=== PATIENT | female | born 1970 | race Caucasian/White ===

== ENCOUNTER → 2020-08-13 12:08 | Outpatient (CLI) | payer OTHER, SELFPAY ==
--- NOTE | 2020-08-13 | DI.US.S_ITS ---
PROCEDURE: US THYROID INDICATIONS: PAIN; LYMPHADENOPATHY TECHNIQUE: Real-time scanning was performed of the thyroid gland, with image documentation. COMPARISON: None. FINDINGS: There is no lymphadenopathy in the neck. The right thyroid lobe measures 1.7 x 1.7 x 4.2 cm. There is a hypoechoic right thyroid lobe nodule measuring 1.2 cm, wider than tall, without internal calcification. The left thyroid lobe measures 1.5 x 1.9 x 4.4 cm. There is a hypoechoic 1.7 cm wider than tall left thyroid lobe nodule without internal calcification. IMPRESSION: No lymphadenopathy or mass in the right neck. Bilateral thyroid nodules, for which follow-up is recommended in 6 months. Dictated by: Chidi Platt M.D. on 08/13/2020 at 13:34 Approved by: Chidi Platt M.D. on 08/13/2020 at 13:37
== END ==
PROVIDERS: Family Provider Physician Assistant Medical; PCP Family Medicine; Referring Provider Physician Assistant Medical; Visit Provider Physician Assistant Medical
DX: R59.0 Localized enlarged lymph nodes (principal); E04.2 Nontoxic multinodular goiter; M54.2 Cervicalgia
CPT/HCPCS: 76536

== ENCOUNTER 2021-12-31 12:03 | Emergency (ER) | payer OTHER, SELFPAY ==
[2021-12-31 12:08] VITALS: BP 164/104; PULSE 88; RESP 14; TEMP 36.5; O2SAT 97; BMI 28.0
[2021-12-31 13:25] LABS: Add Manual Diff / Slide Review NO; Basophils Absolute Auto 100 /uL (0-100); Basophils Percent Auto 0.7 % (0-2); Eosinophils Absolute Auto 100 /uL (0-450); Eosinophils Percent Auto 1.1 % (2-4); Hematocrit 40.6 % (36-46); Hemoglobin 13.8 g/dL (12.0-16.0); Lymphocytes Absolute Auto 2000 /uL (1100-4500); Lymphocytes Percent Auto 26.2 % (25-40); Mean Corpuscular HGB Conc 34.1 % (30-36); Mean Corpuscular Hemoglobin 32.1 PG (26-34); Monocytes Absolute Auto 700 /uL (0-900); Monocytes Percent Auto 8.9 % (3-14); Neutrophils Absolute Auto 4800 /uL (1500-7000); Neutrophils Percent Auto 63.1 % (50-75); Platelet Count 171 X10^3/uL (150-400); Red Blood Cell Count 4.31 X10^6/uL (4.0-5.2); Red Cell Distribution Width 13.7 % (11.6-14.8); White Blood Cell Count 7.6 X10^3/uL (4.5-11.0)
--- NOTE | 2021-12-31 13:37 | ED_ITS ---
HPI - Dental/Oral General Chief complaint: Dental/Oral Stated complaint: Left Sided Facial Swelling Time Seen by Provider: 12/31/21 12:42 Source: patient Mode of arrival: Ambulatory Limitations: no limitations History of Present Illness HPI Narrative: This is a 51-year-old female comes to the emergency department with complaint of left-sided facial swelling that started in the last day. She had a tooth that broke off. Patient states she started noticing swelling overnight and into this morning particularly under the left eye. She was seen by her primary care provider Dr. Jaquez who was concerned for orbital cellulitis and sent patient for evaluation. She does take chronic pain medication including methadone daily, she is on oxycodone, sertraline, duloxetine, gabapentin and frovatriptan. Patient has been afebrile. She has pain of the cheek but denies any pain of the eye itself. No pain with movement of the eye. No fevers or chills. No nausea or vomiting. She is uncomfortable. She denies any other symptoms at this time. She states she is allergic to diclofenac but can take ibuprofen. Related Data Home Medications Medication Instructions Recorded Confirmed omeprazole 20 mg capsule,delayed 20 mg PO QDAY #0 03/26/13 release fluoxetine 40 mg capsule (Prozac) 40 mg PO QDAY #0 05/10/13 Previous Rx's Medication Instructions Recorded amoxicillin 875 mg-potassium 1 tab PO Q12H #20 tab 12/31/21 clavulanate 125 mg tablet (Augmentin) Allergies Allergy/AdvReac Type Severity Reaction Status Date / Time codeine [CODEINE] Allergy Unknown Verified 12/31/21 12:13 diclofenac Allergy Unknown Verified 12/31/21 12:13 WHIP CREAM Allergy Unknown HIVES , Uncoded 02/06/18 12:56 DIFFICULTY SWALLOWING Review of Systems Review of Systems ROS Unobtainable: All systems reviewed & are unremarkable except as noted in HPI and below Patient History Surgical History History of third molar tooth extraction Status post tubal ligation (03/28/11) Social History Smoking Status: Current every day smoker Smoking Status: Current every day smoker alcohol intake frequency: holidays/special occasions only Substance Use Type: marijuana Exam Narrative Exam Narrative: GEN: well nourished, well appearing female, alert and oriented x 3, patient appears to be in mild distress. HEENT: Atraumatic, pupils are equal round reactive to light, extraocular movements are intact, patient has some swelling periorbitally and of the left lower eyelid, she has some mild periorbital swelling above but not of the upper eyelid. There is some mild erythema. No fluctuance. Patient is tender over the left maxillary sinus. Nares are clear, TMs are clear with no fluid, there is no conjunctival pallor. Throat is clear without any exudates, erythema, tonsillar enlargement or uvular deviation, LUNGS:Lungs clear to auscultation, no wheezes, rales, crackles, chest moves sym metrically ABD:bowel sounds normal, soft, non-tender, no guarding, rebound, rigidity, no masses noted, no hepatosplenomegaly MSCL: Full range of motion, normal gait NEURO:CN 2-12 intact, sensation normal SKIN: See above. Initial Vital Signs Initial Vital Signs: Vital Signs Temperature 97.7 F 12/31/21 12:08 Pulse Rate 88 12/31/21 12:08 Respiratory Rate 14 12/31/21 12:08 Blood Pressure 164/104 H 12/31/21 12:08 Pulse Oximetry 97 12/31/21 12:08 Course Orders Ordered: Discontinued Medications Ceftriaxone Sodium 2,000 mg/ (Sodium Chloride) 100 mls @ 200 mls/hr IV NOW ONE Stop: 12/31/21 12:43 Last Infusion: 12/31/21 15:29 Dose: 0 mls/hr Documented by: Admin: 12/31/21 13:46 Dose: 200 mls/hr Documented by: YVONNE Ketorolac Tromethamine (Ketorolac 30 Mg/Ml Vial) 15 mg IV NOW ONE Stop: 12/31/21 13:56 Last Admin: 12/31/21 14:11 Dose: 15 mg Documented by: YVONNE Vital Signs Vital signs: Vital Signs - 8 hr 12/31/21 12:08 12/31/21 14:43 Temperature 97.7 F Pulse Rate 88 68 Respiratory Rate 14 18 Blood Pressure 164/104 H 121/79 Pulse Oximetry 97 96 MDM - Dental/Oral Lab Data Result diagrams: 12/31/21 13:10 12/31/21 13:10 Labs: Lab Results 12/31/21 12/31/21 Range/Units 13:10 13:10 WBC 7.6 (4.5-11.0) X10^3/uL RBC 4.31 (4.0-5.2) X10^6/uL Hgb 13.8 (12.0-16.0) g/dL Hct 40.6 (36-46) % MCV 94.0 (80-100) fL MCH 32.1 (26-34) PG MCHC 34.1 (30-36) % RDW 13.7 (11.6-14.8) % Plt Count 171 (150-400) X10^3/uL Neut % (Auto) 63.1 (50-75) % Lymph % (Auto) 26.2 (25-40) % Iron % (Auto) 8.9 (3-14) % Eos % (Auto) 1.1 L (2-4) % Baso % (Auto) 0.7 (0-2) % Neut # (Auto) 4800 (7211-8764) /uL Lymph # (Auto) 2000 (5210-5102) /uL Iron # (Auto) 700 (0-900) /uL Eos # (Auto) 100 (0-450) /uL Baso # (Auto) 100 (0-100) /uL Sodium 137 (137-145) mmol/L Potassium 4.0 (3.4-5.1) mmol/L Chloride 105 (98-107) mmol/L Carbon Dioxide 28 (22-32) mmol/L BUN 6 L (7-17) mg/dL Creatinine 0.64 (0.52-1.04) mg/dL Estimated GFR > 60.0 (>60) mL/min BUN/Creatinine Ratio 9.4 (6-22) Glucose 88 (70-100) mg/dL Calcium 8.6 (8.4-10.2) mg/dL Imaging Data CT facial bones: Radiologist's Impression: [address] [address] [address] Scan Report Signed Patient: Bisi Riley MR#: [id number] : 1970 Acct:[id number] Age/Sex: 51 / F Date of Service: 12/31/21 Loc: ED Accession Number: [id number] ?? Procedure: CT facial bones w con Ordering Provider: Jana Schmitt D.O. PROCEDURE:? CT FACIAL BONES W CON ? INDICATIONS:? orbital cellulitis vs. left facial cellulitis ? TECHNIQUE:? After the administration of intravenous contrast, 2.5 mm axial sections acquired from the mid-neck to the frontal sinuses, with coronal and sagittal reformats.? For radiation dose reduction, the following was used:? automated exposure control, adjustment of mA and/or kV according to patient size.? ? COMPARISON:? None. ? FINDINGS:? Image quality:? Excellent.? ? Soft tissues:? There is left periorbital swelling and enhancement and enhancement and thickening of the superficial structures of the left cheek consistent with periorbital cellulitis.? No soft tissue gas.? No abscess.? Abnormality involving the globe or deep orbital structures.? No enlarged lymph nodes.? ? Vascular:? Visualized vascular structures appear patent throughout.? Bony vascular foramina and canals appear normal.? ? Bones:? Facial bones appear intact, without fractures, erosions, or destruction.? Visualized portions of the skull base and auditory canals also appear normal.? ? Sinuses:? Mucosal thickening of the left maxillary sinus measuring 7 mm in diffuse thickness.? Right maxillary sinus mucous retention cyst.? Other visualized paranasal sinuses and mastoids are clear. ? IMPRESSION:? ? 1. Left periorbital and left facial cellulitis. ? 2. Chronic left maxillary sinus disease.? ? ? Dictated by: Pepito Doshi M.D. on 12/31/2021 at 13:25 ? ? Approved by: Pepito Doshi M.D. on 12/31/2021 at 13:29? [facility] Narrative Medical decision making narrative: This is a 51-year-old female who comes in with complaint of swelling of the left side of her face sent from outside office for concern for orbital cellulitis. Has poor dentition and suspect this is the source of infection she has had swelling coming up a but is surrounding her eye. Patient does not have any pain with any IR with movement but does have periorbital swelling surrounding. CT orbits and facial bones was obtained which shows cellulitis but no clear abscess and no orbital cellulitis. Patient was started on antibiotics. Reviewed all the findings from today. Return precautions discussed. Patient comfortable with the plan. Discharge Plan Departure Patient Disposition: Home Clinical Impression: Cellulitis of face, Periorbital cellulitis of left eye Instructions: DI for Cellulitis -- Adult Activity Restrictions/Additional Instructions: Follow-up and recheck in the next 2-3 days if symptoms have not completely resolved. Take antibiotics until completely gone. Start oral antibiotics today. Prescription sent to [facility] in [place]. Please return for fevers, increasing swelling, redness, pain of the eye, pain with movement of the eye, lightheadedness or passing out, persistent vomiting, swelling of the mouth, tongue or oropharynx or other new or concerning symptoms. Prescriptions: New amoxicillin-pot clavulanate [Augmentin] 875-125 mg tablet 1 tab PO Q12H Qty: 20 0RF No Action omeprazole 20 MG capsule,delayed release(DR/EC) 20 mg PO QDAY Qty: 0 0RF fluoxetine [Prozac] 40 MG capsule 40 mg PO QDAY Qty: 0 0RF Referrals: Ritesh Guzman DO [Primary Care Provider] -
[2021-12-31 13:45] LABS: BUN Creatinine Ratio 9.4 (6-22); Blood Urea Nitrogen 6 mg/dL (7-17); Calcium 8.6 mg/dL (8.4-10.2); Carbon Dioxide 28 mmol/L (22-32); Chloride 105 mmol/L (98-107); Estimated Glomerular Filt Rate > 60.0 mL/min (>60); Glucose 88 mg/dL (70-100); HEMOLYSIS < 15 (0-50); Sodium 137 mmol/L (137-145)
[2021-12-31] MEDS: cefTRIAXone 2,000 MG in SODIUM CHLORIDE 0.9% 100 ML 200 ML IV (13:46)
--- NOTE | 2021-12-31 13:48 | DI.CT.S_ITS ---
PROCEDURE: CT FACIAL BONES W CON INDICATIONS: orbital cellulitis vs. left facial cellulitis TECHNIQUE: After the administration of intravenous contrast, 2.5 mm axial sections acquired from the mid-neck to the frontal sinuses, with coronal and sagittal reformats. For radiation dose reduction, the following was used: automated exposure control, adjustment of mA and/or kV according to patient size. COMPARISON: None. FINDINGS: Image quality: Excellent. Soft tissues: There is left periorbital swelling and enhancement and enhancement and thickening of the superficial structures of the left cheek consistent with periorbital cellulitis. No soft tissue gas. No abscess. Abnormality involving the globe or deep orbital structures. No enlarged lymph nodes. Vascular: Visualized vascular structures appear patent throughout. Bony vascular foramina and canals appear normal. Bones: Facial bones appear intact, without fractures, erosions, or destruction. Visualized portions of the skull base and auditory canals also appear normal. Sinuses: Mucosal thickening of the left maxillary sinus measuring 7 mm in diffuse thickness. Right maxillary sinus mucous retention cyst. Other visualized paranasal sinuses and mastoids are clear. IMPRESSION: 1. Left periorbital and left facial cellulitis. 2. Chronic left maxillary sinus disease. Dictated by: Pepito Doshi M.D. on 12/31/2021 at 13:25 Approved by: Pepito Doshi M.D. on 12/31/2021 at 13:29
[2021-12-31] MEDS: KETOROLAC 30 MG/ML VIAL 15 MG IV (14:11)
[2021-12-31 14:43] VITALS: BP 121/79; PULSE 68; RESP 18; O2SAT 96
[2021-12-31 16:04] VITALS: BP 123/77; PULSE 64; RESP 18; O2SAT 96
== END 2021-12-31 16:25 | disposition home or self-care (01) ==
PROVIDERS: Emergency Provider Emergency Medicine; Family Provider Physician Assistant Medical; PCP Family Medicine
DX: L03.211 Cellulitis of face (principal); L03.213 Periorbital cellulitis; Z79.891 Long term (current) use of opiate analgesic; F17.200 Nicotine dependence, unspecified, uncomplicated
CPT/HCPCS: 36415; 70487; 80048; 85025; 87040; 96365; 96366; 96375; 99284; J0696; J1885; Q9967

== ENCOUNTER 2022-11-27 12:05 | Day surgery (SDC) | payer OTHER, SELFPAY ==
--- NOTE | 2022-11-27 | PATH_ITS ---
[facility] Accession Number: [id number] No. of containers..03 Tissue . 01 Material submitted: . PART A: colon - TRANSVERSE COLON POLYP PART B: cecum - CECAL POLYP PART C: colon - RANDOM COLON BX . 01 Diagnosis: A. Transverse Colon, Polyp, Biopsy: Tubular adenoma. . B. Cecum, Polyp, Biopsy: Tubular adenoma. . C. Random Colon, Biopsy: Colonic mucosa with no diagnostic abnormality. Negative for active, chronic, and microscopic colitis. Negative for dysplasia and malignancy. . MRV 12/01/2022 1312 Local . 01 Electronically signed: . Jennifer Wang MD, Pathologist NPI- [id number] . 01 Gross description: . Part A: TRANSVERSE COLON POLYP: Received in formalin are 2 fragment(s) of mack, soft tissue measuring 0.1 x 0.1 x 0.1 cm to 0.6 x 0.4 x 0.3 cm submitted entirely in 1 cassette(s) Part B: CECAL POLYP: Received in formalin is 1 fragment(s) of mack, soft tissue measuring 0.1 x 0.1 x 0.1 cm submitted entirely in 1 cassette(s) Part C: RANDOM COLON BX: Received in formalin are 2 fragment(s) of mack, soft tissue measuring 0.1 x 0.1 x 0.1 cm to 0.2 x 0.1 x 0.1 cm submitted entirely in 1 cassette(s) /KP 11/28/2022 1846 Local . 01 Pathologist provided ICD-10: D12.0, D12.3 . 01 CPT . 014286, 033307, 087455 Performed at: 01 [facility] Cytology [address] [place] [address], [place], [place] [id number] MD Dayron Nuno MD Phone: [phone]
[2022-11-27 13:35] VITALS: BP 154/110; PULSE 84; RESP 16; TEMP 36.1; O2SAT 97; BMI 25.8
--- NOTE | 2022-11-27 13:43 | PM.HP.1 ---
History of Present Illness History of Present Illness Date Patient Seen: 11/27/22 Time Patient Seen: 13:43 Chief complaint: SDC Narrative: Positive FIT. Diarrhea. I reviewed the recent office note. Patient History Medical History Back pain with history of spinal surgery Diarrhea (~05/2022) Surgical History H/O cervical spine surgery (~2016) History of third molar tooth extraction Hx of tonsillectomy (~2010) Status post tubal ligation (03/28/11) Family & Social History Social History: household members family Tobacco & Substance use: Smoking Status Current every day smoker alcohol intake frequency holiday/special occasion Substance Use Type marijuana Meds Home Medications and Allergies Home Medications Medication Instructions Recorded Confirmed Type duloxetine 30 mg capsule,delayed See Rx Instructions .Route .COMPLEX 11/27/22 11/27/22 History release frovatriptan 2.5 mg tablet See Rx Instructions .Route .COMPLEX 11/27/22 11/27/22 History gabapentin 600 mg tablet 600 mg PO TID 11/27/22 11/27/22 History methadone 10 mg tablet 10 mg PO BID 11/27/22 11/27/22 History oxycodone 10 mg tablet 10 mg PO TID 11/27/22 11/27/22 History Allergies Allergy/AdvReac Type Severity Reaction Status Date / Time diclofenac Allergy Unknown Verified 11/27/22 13:24 WHIP CREAM Allergy Unknown HIVES , Uncoded 11/27/22 13:24 DIFFICULTY SWALLOWING Review of Systems Review of Systems ROS: Yes All systems reviewed with the patient and are negative except as otherwise documented Exam Vital Signs (past 8 hours): - 11/27/22 13:35 Temperature 97.0 F L Pulse Rate 84 Respiratory Rate 16 Blood Pressure 154/110 H Pulse Oximetry 97 Oxygen Delivery Method Room Air Oxygen Delivery Method Room Air Assessment & Plan Assessment & Plan narrative: 52-year-old female with a history of diarrhea and positive FIT. Colonoscopy is pursued today. Time Spent With Patient Critical Care time: I spent a total of [] minutes of critical care time on this patient's care today; this time is exclusive of procedural time.
[2022-11-27 13:45] VITALS: BMI 25.8
[2022-11-27] MEDS: LACTATED RINGERS 1,000 ML 42 ML IV ×2 (13:45→14:22)
--- NOTE | 2022-11-27 13:45 | PM.PREOP ---
Pre-operative Note Interval Note History & Physical reviewed/Exam performed by Physician: Yes Changes to H&P: No ASA Class (for procedural sedation): III
--- NOTE | 2022-11-27 14:26 | PM.OP.COLON ---
Operative Date/Time/Diagnoses Date of procedure: 11/27/22 Time of procedure: 14:26 Pre-op diagnosis: Positive FIT, diarrhea Post-op diagnosis: same Procedure & Clinicians Study performed: Colonoscopy with cold snare polypectomy and random biopsies Same procedure as scheduled: Yes Indications: Positive FIT and diarrhea Surgeon: Jay Remy Procedure Notes SCOAP/Timeout: Done Procedure in detail: After the risks and benefits were explained, written and verbal informed consent was obtained. The patient was brought into the procedure room and placed into the left lateral decubitus position. Please see anesthesia notes for sedation details. Digital rectal examination was accomplished. The scope was introduced into the patient and advanced under direct visualization to the cecum as identified by the appendiceal orifice and ileocecal valve. The scope was slowly withdrawn to carefully examine the mucosa for any defects or lesions. Comprehensive imaging was accomplished throughout the rectum including the dentate line. The colon was decompressed, the scope was then removed from the patient who tolerated the procedure well. Adult colonoscope Bowel prep fair; with copious irrigation this was rendered adequate. Scope withdrawal time: 13 minutes Sedation minutes: 27 Complications: none Impression: The patient had a very redundant colon. Navigation was as a result rather challenging. There were some mild internal hemorrhoids. No evidence of macroscopic colitis. Random colon biopsies were taken for exclusion of microscopic colitis. Limited views to the very terminal aspect of the terminal ileum appeared normal. There was an approximately 5-6 mm polyp in the transverse colon removed with cold snare. There was a 2nd diminutive 3-4 mm polyp in the cecum removed with cold snare. Endoscopic diagnosis 1. Redundant colon 2. Mild hemorrhoids 3. Diminutive colon polyps Post-procedure Plan for aftercare: 1. Await histopathology. 2. Fiber based bowel regimen for soft regular stools 3. If adenomatous features are identified, repeat colonoscopy will likely be suggested for 5 years considering the just slightly suboptimal prep today. Disposition: PACU
[2022-11-27 14:30] VITALS: BP 109/80; PULSE 70; RESP 12; TEMP 36.9; O2SAT 95
[2022-11-27 14:38] VITALS: BP 123/84; PULSE 66; RESP 14; TEMP 36.9; O2SAT 98
--- NOTE | 2022-11-27 14:44 | SUR.PHASEII ---
discharged with all belongings. denies pain. with sister. DC'd by
== END 2022-11-27 14:52 | disposition home or self-care (01) ==
PROVIDERS: Family Provider Physician Assistant Medical; PCP Internal Medicine; Referring Provider Internal Medicine Gastroenterology; Visit Provider Internal Medicine Gastroenterology
PROC: 0DJD8ZZ Inspection of Lower Intestinal Tract, Via Natural or Artificial Opening Endoscopic (ICD-10-PCS; CPT 45378; principal; 2022-11-27 13:30)
DX: R19.5 Other fecal abnormalities (principal); R19.7 Diarrhea, unspecified; K64.8 Other hemorrhoids; D12.3 Benign neoplasm of transverse colon; D12.0 Benign neoplasm of cecum
CPT/HCPCS: 45385; 45380; J2704; J3010

== ENCOUNTER → 2023-07-12 13:54 | Outpatient (CLI) | payer OTHER, SELFPAY ==
--- NOTE | 2023-07-12 | DI.US.S_ITS ---
PROCEDURE: US FINE NEEDLE ASPIRATION INDICATIONS: Nontoxic single thyroid nodule TECHNIQUE: The indications, alternatives, benefits, risks, and complications of the procedure were explained to the patient. Written informed consent was obtained and placed in the chart. The thyroid region was examined sonographically and a site was chosen for ultrasound guided percutaneous sampling. The skin was prepared and draped in the usual fashion, and anesthetized with 1% lidocaine infiltrated from the skin down to the thyroid gland. Multiple passes were then performed, with contents emptied into an appropriate pathology specimen container. A bandage was applied to the area of access at completion of the study. COMPARISON: US, US THYROID, 08/13/2020, 12:35. [facility][1], , US THYROID/NECK/HEAD, 12/13/2022, 8:29. FINDINGS: Location(s) of lesion(s) sampled: Left mid thyroid nodule (nodule 2) [place]: 25 gauge hypodermic needles. Number of passes: 9 Medications: 1% lidocaine for local anaesthesia. Complications: None. IMPRESSION: Successful ultrasound-guided thyroid nodule fine needle aspiration, with cytology results pending. Please see chart below for management recommendations based on cytology results. [place] [facility] ReportingRecommendationsNon-diagnostic* Repeat US-guided FNA, with on-site cytology evaluation if possible. * Repeated non-diagnostic nodules without high suspicion US features: close observation vs surgical consult. * Consider surgery if nodule has high suspicion US features, grows >20% in 2 dimensions on followup, or patient has clinical risk factors for malignancy. Benign* If nodule has high suspicion US features: repeat US and FNA within 12 months. * If nodule has low to intermediate suspicion US features: repeat US at 12-24 months. If nodule grows (20% increase in at least 2 dimensions, with minimal increase of 2 mm or >50% change in volume), or development of new suspicious US features, then repeat FNA or continue followup. * If nodule has very low suspicion US features: followup US at >24 months. Atypia of undetermined significance, follicular lesion of undetermined significanceRepeat FNA, molecular testing, followup US, or surgical consult.Follicular neoplasm, suspicious for follicular neoplasmSurgical consult; also consider molecular testing. Suspicious for malignancySurgical consult.MalignantSurgical consult. Dictated by: Diaz Pedraza M.D. on 07/13/2023 at 17:11 Approved by: Diaz Pedraza M.D. on 07/13/2023 at 17:13
--- NOTE | 2023-07-12 | PATH_ITS ---
Note [facility] Accession Number: [id number] TESTS RESULT FLAG UNITS REF RANGE LAB Clinician Provided Cytology Information No. of containers..01 Other (Miscellaneous) No. of containers..06 Previously Prepared Cytology Slide Source: LEFT MID THYROID NODULE DIAGNOSIS: LEFT MID THYROID NODULE INCONCLUSIVE. [place] CATEGORY III. ATYPIA OF UNDETERMINED SIGNIFICANCE. MOLECULAR STUDIES REQUESTED; RESULTS WILL BE REPORTED SEPARATELY. Pathologist ICD10: R89.6 Signed out by: Yamilet Long MD, Pathologist NPI- [id number] Performed by: Maurice Navarrete, Bridge Design Engineer ([facility]) Gross description: 30 CC, PINK, CLEAR RECIEVED: IN CYTOLYT WITH 8 ALCOHOL FIXED AND 8 QUICK STAINED SLIDES ALSO 1 RNA VIAL WAS RECEIVED.VO /VDU 07/13/2023 0748 [facility] FLAG LEGEND: L-Low Normal,H-High Normal,LL-Alert Low,HH-Alert High <-Panic Low,>-Panic High,A-Abnormal,AA-Critical Abnormal Performed at: 01 =[facility] [address] [facility] [address], [place] [address] Dayron Nuno MD, Performed at: 01 [facility] [address], [place], [place] [id number] MD Dayron Nuno MD Phone: [phone]
== END ==
PROVIDERS: Family Provider Physician Assistant Medical; PCP Internal Medicine; Referring Provider Nurse Practitioner Family; Visit Provider Nurse Practitioner Family
DX: E04.1 Nontoxic single thyroid nodule (principal)
CPT/HCPCS: 10005

== ENCOUNTER → 2024-09-12 14:06 | Outpatient (CLI) | payer OTHER, SELFPAY ==
--- NOTE | 2024-09-12 14:13 | DI.US.S_ITS ---
PROCEDURE: US THYROID INDICATIONS: NON TOXIC SINGLE THYROID NODULE TECHNIQUE: Real-time scanning was performed of the thyroid gland, with image documentation. COMPARISON: [facility], US, US THYROID, 08/13/2020, 12:35. [facility], RG, US THYROID/NECK/HEAD, 12/13/2022, 8:29. FINDINGS: Thyroid: Right lobe measures 4.1 x 1.3 x 1.6 cm. Left lobe measures 4.2 x 2.1 x 1.4 cm. Isthmus is 0.3 cm thick. Echotexture is homogeneous. Nodule number: 1 Location: Right mid Size: 0.9 x 0.6 x 0.6 cm. Composition: Solid Echogenicity: Isoechoic Shape: Wider than tall Margins: Smooth Echogenic foci: None Total points: 3 ACR TI-RADS category: Mildly suspicious Nodule number: 2 Location: Left lower Size: 1.5 x 1.0 x 1.0 cm. Composition: Solid Echogenicity: Isoechoic Shape: Wider than tall Margins: Smooth Echogenic foci: None Total points: 3 ACR TI-RADS category: Mildly suspicious Complex 0.8 x 0.5 x 0.6 centimeter cyst in the lower margin of the left thyroid. IMPRESSION: Thyroid nodules without significant change compared to August 13, 2020. Based on imaging characteristics and size of nodule in the left lobe of the thyroid gland recommend continued surveillance as outlined below. ACR TI-RADS definitions and recommendations: TI-RADS 1 (benign): 0 points. FNA not needed. TI-RADS 2 (not suspicious): 2 points. FNA not needed. TI-RADS 3: 3 points. * FNA if 2.5 cm or larger, follow up if 1.5 cm or larger (at 1, 3, and 5 years). TI-RADS 4: 4-6 points. * FNA if 1.5 cm or larger, follow up if 1 cm or larger (at 1, 2, 3, and 5 years). TI-RADS 5: 7 points or more. * FNA if 1 cm or larger, follow up if 0.5 cm or larger (every year for 5 years). Dictated by: Emmie Calderon MD, PhD on 09/12/2024 at 15:14 Approved by: Emmie Calderon MD, PhD on 09/12/2024 at 15:40
== END ==
LOC: US 14:11
PROVIDERS: Family Provider Physician Assistant Medical; PCP Internal Medicine
DX: E04.1 Nontoxic single thyroid nodule (principal)
CPT/HCPCS: 76536

== ENCOUNTER 2025-01-09 02:53 | Emergency (ER) | payer OTHER, SELFPAY ==
[2025-01-09] VITALS (13 sets, daily range): BP systolic 134–209; BP diastolic 79–112; PULSE 70–86; RESP 14–18; TEMP 36.1; O2SAT 93–99; BMI 26.6
--- NOTE | 2025-01-09 03:22 | ED_ITS ---
HPI - Headache General Chief Complaint: Headache Stated Complaint: Migraine since 9pm,migraine meds not working Time Seen by Provider: 01/09/25 03:22 Mode of arrival: Ambulatory History of Present Illness HPI Narrative: Patient is a 54-year-old female with a history of migraines comes into the ED for evaluation of migraine headache, she states that this started at around 9:00 p.m. yesterday states that she has tried medications at home including her Triptan but no improvement therefore decided come into the ED for further evaluation treatment she denies any trauma or falls. Patient states that the migraine she is experiencing is her similar to her migraine which is to the right side lights and sound making it worse, however the intensity is the difference. She states that in the past her migraines were due to her menstrual cycle, however she states that she has been under menopausal for the past 3 years and now her migraines will present themselves out of nowhere. She denies any other symptoms such as chest pain shortness breath fever chills nausea vomiting abdominal pain or any other GI/ symptoms at this time. Related Data Home Medications Medication Instructions Recorded Confirmed duloxetine 30 mg capsule,delayed See Rx Instructions .Route .COMPLEX 11/27/22 11/27/22 release frovatriptan 2.5 mg tablet See Rx Instructions .Route .COMPLEX 11/27/22 11/27/22 gabapentin 600 mg tablet 600 mg PO TID 11/27/22 11/27/22 methadone 10 mg tablet 10 mg PO BID 11/27/22 11/27/22 oxycodone 10 mg tablet 10 mg PO TID 11/27/22 11/27/22 Allergies Allergy/AdvReac Type Severity Reaction Status Date / Time diclofenac Allergy Unknown Verified 11/27/22 13:24 WHIP CREAM Allergy Unknown HIVES , Uncoded 11/27/22 13:24 DIFFICULTY SWALLOWING Review of Systems Review of Systems Narrative: General: Denies fever, chills, weight loss HEENT: Positive headache, denies eye drainage, eye irritation, head trauma, sore throat, voice change Cardiovascular: Denies any chest pain, palpitations, tachycardia Respiratory: Denies any shortness of breath, cough, wheeze, stridor GI/: Positive nausea, Denies any abdominal pain, vomiting, diarrhea, bright red blood per rectum, melanotic stools, urinary frequency, urinary retention, dysuria, hematuria MSK: Denies any joint pain, muscle pains, swelling Skin: Denies any rashes, lesions, discoloration Neuro: Denies any headache, lightheadedness, dizziness, fainting, weakness Psych: Denies SI/HI Patient History Medical History Back pain with history of spinal surgery Diarrhea (~05/2022) Surgical History H/O cervical spine surgery (~2016) History of third molar tooth extraction Hx of tonsillectomy (~2010) Status post tubal ligation (03/28/11) Social History household members: family Smoking Status: Current every day smoker Smoking Status: Current every day smoker alcohol intake frequency: holidays/special occasions only Exam Narrative Exam Narrative: General: Cooperative, comfortable, well-developed, not in acute distress HEENT: Normocephalic, atraumatic, PERRLA, normal sclera, eyelids normal, Neck: Active full range of motion, atraumatic Chest: Normal to inspection, negative crepitus, no overlying erythema ecchymosis Respiratory: Normal respiratory effort, not in acute respiratory distress, clear to auscultation bilaterally negative cough, wheeze, tachypnea, rhonchi, rales Cardiology: Regular rate rhythm negative gallop, murmur, rubs GI/: Normal to inspection, soft, nonrigid, no tenderness to palpation, exam deferred MSK: Full range of active range of motion of all 4 extremities, atraumatic Skin: No rashes lesions noted Neuro: NIH of 0 no focal deficits Alert awake oriented x3, moves all 4 extremities spontaneously, cranial nerves intact, able to answer all questions appropriately follows commands appropriately Psych: Cooperative, negative suicidal or homicidal ideations Initial Vital Signs Initial Vital Signs: Vital Signs Temperature 96.9 F L 01/09/25 03:05 Pulse Rate 86 01/09/25 03:05 Respiratory Rate 18 01/09/25 03:05 Blood Pressure 207/103 H 01/09/25 03:05 Pulse Oximetry 96 01/09/25 03:05 Oxygen Delivery Method Room Air 01/09/25 03:05 Course Orders Ordered: ED Orders 01/09/25 03:26 CT head/brain wo con Stat 01/09/25 03:28 Basic Metabolic Panel Stat Complete Blood Count AUTO DIFF Stat 01/09/25 04:50 CT angio head and neck Stat Discontinued Medications Dexamethasone (Dexamethasone 10 Mg/Ml Vial) 10 mg IV NOW ONE Stop: 01/09/25 03:25 Last Admin: 01/09/25 03:42 Dose: 10 mg Documented By: SNEHA Diphenhydramine HCl (Diphenhydramine 50 Mg/Ml Vial) 25 mg IV NOW ONE Stop: 01/09/25 03:25 Last Admin: 01/09/25 03:42 Dose: 25 mg Documented By: SNEHA Sodium Chloride (Normal Saline 0.9%) 1,000 mls @ 1,000 mls/hr IV BOLUS ONE Stop: 01/09/25 04:23 Last Infusion: 01/09/25 05:13 Dose: Infused Documented By: Admin: 01/09/25 03:41 Dose: 1,000 mls/hr Documented By: SNEHA Labetalol HCl (Labetalol 20 Mg/4 Ml Syringe) 20 mg IV NOW ONE Stop: 01/09/25 04:55 Last Admin: 01/09/25 05:13 Dose: 20 mg Documented By: JOSEFINA Morphine Sulfate (Morphine 4 Mg/Ml Inj) 4 mg IV NOW ONE Stop: 01/09/25 04:29 Last Admin: 01/09/25 04:32 Dose: 4 mg Documented By: JOSEFINA Prochlorperazine (Prochlorperazine 10 Mg/2 Ml Vial) 10 mg IV NOW ONE Stop: 01/09/25 03:25 Last Admin: 01/09/25 03:42 Dose: 10 mg Documented By: SNEHA Vital Signs Vital signs: Vital Signs - 8 hr 01/09/25 03:05 01/09/25 04:16 01/09/25 04:17 Temperature 96.9 F L Pulse Rate 86 75 Respiratory Rate 18 16 Blood Pressure 207/103 H 209/100 H Pulse Oximetry 96 95 Oxygen Delivery Method Room Air Room Air 01/09/25 04:17 01/09/25 04:27 01/09/25 04:27 Temperature Pulse Rate 80 75 Respiratory Rate Blood Pressure 205/102 H Pulse Oximetry 99 97 Oxygen Delivery Method 01/09/25 04:30 01/09/25 04:47 01/09/25 04:47 Temperature Pulse Rate 74 78 Respiratory Rate Blood Pressure 202/112 H Pulse Oximetry 97 99 Oxygen Delivery Method 01/09/25 05:10 01/09/25 05:11 01/09/25 05:11 Temperature Pulse Rate 85 84 Respiratory Rate 14 Blood Pressure 199/98 H Pulse Oximetry 99 97 Oxygen Delivery Method Room Air 01/09/25 05:20 01/09/25 05:20 01/09/25 05:30 Temperature Pulse Rate 73 Respiratory Rate Blood Pressure 173/87 H 162/86 H Pulse Oximetry 94 Oxygen Delivery Method 01/09/25 05:30 01/09/25 05:41 01/09/25 05:41 Temperature Pulse Rate 71 70 Respiratory Rate 16 16 Blood Pressure 144/85 H Pulse Oximetry 94 93 Oxygen Delivery Method Room Air Room Air MDM - Headache Differential Diagnosis Differential diagnosis: Likely migraine, tension headache and other (Intracranial hemorrhage,) Lab Data 01/09/25 03:28 01/09/25 03:28 Labs: Lab Results 01/09/25 Range/Units 03:28 WBC 11.9 H (4.5-11.0) X10^3/uL RBC 5.09 (4.0-5.2) X10^6/uL Hgb 16.4 H (12.0-16.0) g/dL Hct 48.3 H (36-46) % MCV 94.8 (80-100) fL MCH 32.2 (26-34) PG MCHC 34.0 (30-36) % RDW 13.4 (11.6-14.8) % Plt Count 186 (150-400) X10^3/uL Neut % (Auto) 79.8 H (50-75) % Lymph % (Auto) 13.5 L (25-40) % [place] % (Auto) 6.2 (3-14) % Eos % (Auto) 0.1 L (2-4) % Baso % (Auto) 0.4 (0-2) % Neut # (Auto) 9500 H (6072-9472) /uL Lymph # (Auto) 1600 (0664-9779) /uL [place] # (Auto) 700 (0-900) /uL Eos # (Auto) 0 (0-450) /uL Baso # (Auto) 0 (0-100) /uL Sodium 136 L (137-145) mmol/L Potassium 3.5 (3.4-5.1) mmol/L Chloride 102 (98-107) mmol/L Carbon Dioxide 25 (22-32) mmol/L BUN 6 L (7-17) mg/dL Creatinine 0.72 (0.52-1.04) mg/dL Estimated GFR > 60 (>60) mL/min BUN/Creatinine Ratio 8.3 (6-22) Glucose 114 H (70-100) mg/dL Calcium 9.5 (8.4-10.2) mg/dL Imaging Data CT scan - head: Radiologist's Impression: Preliminary read showing questionable subdural blood along the posterior falx measuring 3 mm, no midline shift or hydrocephalus MDM Narrative Medical decision making narrative: 54-year-old female with a history of migraine presents to the emergency department for migraine. She states that in the past her migraines were triggered by her menstrual cycle however she has been going through menopause over the past 3 years and states that now they will randomly present themselves. She presents with her typical migraine like headache which is right-sided lights making it worse however she states that the intensity is more than she has had in the past. She states that she normally is able to take her frovatriptan and her symptoms will either go away or improve enough to stay home however she states that she took 2 doses of this earlier today last dose at around midnight without any improvement of her symptoms. On exam patient NIH of 0 no focal deficits, patient had lab work CT scan performed here in the emergency department. 0430: Patient re-evaluated still complaining of dull headache states when she initially presented she was 8/10 now 7/10, will add additional analgesics for headache. Still without any focal deficits noted 0455: Had discussion with [facility] in regards to CT scan results, stating questionable subdural blood along the posterior falx measuring 3 mm, no midline shift. Given patient still persistently hypertensive we will trial a dose of 20 mg IV labetalol, will obtain CT angio head and neck to evaluate for possible spontaneous aneurysm. Call placed out to general Neurosurgery. 0513: Discussed case with [facility], states will reach out to Neurosurgery, awaiting callback for further recommendation/interventions. 0530: Patient was re-evaluated after administration of 20 mg IV labetalol, blood pressure now 162/86, patient sitting her headache is now improving, still without any focal deficits, patient was informed about her CT scan results and need for continued evaluation and I any other possible interventions pending discussion with Neurosurgery and CTA head and neck results. 0602: Discussed case with general Neurosurgery Dr. Palomino, who personally reviewed the imaging of both the CT scan of the head and CTA angio head and neck, he states that it is an over-read there is no actual subdural blood along the posterior falx, he states that this would not facilitate a need for repeat CT scan of the head nor transfer or any other further interventions. 0610: Patient re-evaluated states resolution of symptoms after administration of medication here, informed her of her negative CT scan results and need for follow up with primary care given patient with symptoms more likely secondary to hypertensive headache with migraine. She was given strict return precautions she verbalized understanding of this and agrees to being discharged home with outpatient follow up Discharge Plan Departure Patient Disposition: Home Clinical Impression: Migraine, Hypertension Activity Restrictions/Additional Instructions: Please follow up with your primary care doctor Please read the discharge instructions sheet carefully and bring all papers to all doctor follow-up visits, as it may contain information that your doctor may want to see. Disease processes change and evolve, if your symptoms worsen or if you develop any new symptoms that are concerning to you please return for evaluation. Your evaluation today does not show any evidence of any life- threatening/serious illnesses requiring admission to the hospital or surgery. Please follow-up with your doctor for re-evaluation in approximately 1 day. Seek immediate medical attention for any worrisome symptoms. *If you do not have a primary care provider please contact the [facility] Resource line at [phone]. They will ask some questions about your medical history and help get you set up with a doctor in the community. Prescriptions: No Action duloxetine 30 mg capsule,delayed release(DR/EC) See Rx Instructions .ROUTE .COMPLEX Rx Instructions: depression frovatriptan 2.5 mg tablet See Rx Instructions .ROUTE .COMPLEX Patient Comments: TAKE 1 TABLET BY MOUTH UP TO ONCE DAILY NEEDED FOR SEVERE MIGRAINE Rx Instructions: migraines gabapentin 600 mg tablet 600 mg PO TID oxycodone 10 mg tablet 10 mg PO TID Patient Comments: TAKE 1 TABLET BY MOUTH THREE TIMES DAILY NEEDED FOR BREAKTHROUGH PAIN methadone 10 mg tablet 10 mg PO BID Referrals: Connor Justin MD [Primary Care Provider] - Stand Alone Forms: Patient Portal/API/Survey
--- NOTE | 2025-01-09 03:26 | DI.CT.S_ITS ---
PROCEDURE: CT HEAD/BRAIN WO CON INDICATIONS: History of migraine, states worse than normal right-sided TECHNIQUE: Noncontrast 4.5 mm thick angled axial sections acquired from the foramen magnum to the vertex, with coronal and sagittal reformats. For radiation dose reduction, the following was used: automated exposure control, adjustment of mA and/or kV according to patient size. COMPARISON: None. FINDINGS: Image quality: Diagnostic. CSF spaces: Basal cisterns are patent. Questionable subdural blood along the posterior falx measuring 3 millimeters (2/20).. Ventricles are normal in size and shape. Brain: No midline shift. No intracranial masses or hemorrhage. Mckeon-white matter interface is normal. Skull and face: Calvarium and visualized facial bones are intact, without suspicious lesions. Sinuses: Visualized sinuses and mastoids are clear. IMPRESSION: Questionable subdural blood along the posterior falx measuring 3 millimeters. Findings communicated to the ordering provider by the overnight covering radiologist. Findings are concordant with preliminary interpretation provided by [facility]. Dictated by: Lucho Boyer M.D. on 01/09/2025 at 8:14 Approved by: Lucho Boyer M.D. on 01/09/2025 at 8:16
[2025-01-09] MEDS: SODIUM CHLORIDE 0.9% 1,000 ML 1000 ML IV (03:41)
[2025-01-09] MEDS: PROCHLORPERAZINE 10 MG/2 ML VIAL IV (03:42)
[2025-01-09] MEDS: diphenhydrAMINE 50 MG/ML VIAL 25 MG IV (03:42)
[2025-01-09] MEDS: DEXAMETHASONE 10 MG/ML VIAL IV (03:42)
[2025-01-09 03:43] LABS: Add Manual Diff / Slide Review NO; Basophils Absolute Auto 0 /uL (0-100); Basophils Percent Auto 0.4 % (0-2); Eosinophils Absolute Auto 0 /uL (0-450); Eosinophils Percent Auto 0.1 % (2-4); Hematocrit 48.3 % (36-46); Hemoglobin 16.4 g/dL (12.0-16.0); Lymphocytes Absolute Auto 1600 /uL (1100-4500); Lymphocytes Percent Auto 13.5 % (25-40); Mean Corpuscular Hemoglobin 32.2 PG (26-34); Mean Corpuscular Volume 94.8 fL (80-100); Monocytes Absolute Auto 700 /uL (0-900); Monocytes Percent Auto 6.2 % (3-14); Neutrophils Absolute Auto 9500 /uL (1500-7000); Neutrophils Percent Auto 79.8 % (50-75); Platelet Count 186 X10^3/uL (150-400); Red Blood Cell Count 5.09 X10^6/uL (4.0-5.2); Red Cell Distribution Width 13.4 % (11.6-14.8); White Blood Cell Count 11.9 X10^3/uL (4.5-11.0)
[2025-01-09 03:47] LABS: BUN Creatinine Ratio 8.3 (6-22); Blood Urea Nitrogen 6 mg/dL (7-17); Calcium 9.5 mg/dL (8.4-10.2); Carbon Dioxide 25 mmol/L (22-32); Chloride 102 mmol/L (98-107); Estimated Glomerular Filt Rate > 60 mL/min (>60); Glucose 114 mg/dL (70-100); HEMOLYSIS < 15 (0-50); Potassium 3.5 mmol/L (3.4-5.1); Sodium 136 mmol/L (137-145)
--- NOTE | 2025-01-09 04:17 | PC.NURSE ---
Pt ambulatory to restroom without difficulty or assistance
--- NOTE | 2025-01-09 04:20 | PC.NURSE ---
Pt to imaging via wheel chair with meter technician
[2025-01-09] MEDS: MORPHINE 4 MG/ML INJ IV (04:32)
--- NOTE | 2025-01-09 04:50 | DI.CT.S_ITS ---
PROCEDURE: CT ANGIO HEAD AND NECK INDICATIONS: CT scan w/ questionable subdural blood along the cocoa roaster falx TECHNIQUE: After the administration of intravenous contrast, 1 mm thick sections acquired from the aortic arch through the [place] of [place]. 3-dimensional wdjkcpt-phwxxnoih-axhbenmsgb (MIP) and/or volume rendering reformats were acquired of the central intracranial vasculature and neck separately. For radiation dose reduction, the following was used: automated exposure control, adjustment of mA and/or kV according to patient size. COMPARISON: None. FINDINGS: Image quality: Diagnostic. BRAIN: CSF spaces: Ventricles are normal in size and shape. Basal cisterns are patent. No extra-axial fluid collections. Brain: No significant abnormality of the brain can be seen. Skull and face: Calvarium and facial bones appear intact, without suspicious lesions. Orbits appear normal. Sinuses: Sinuses and mastoids are clear. HEAD CT ANGIOGRAPHY: Anterior circulation: Intracranial internal carotid arteries are normal in size and flow. The flow within the paired anterior cerebral arteries is normal and symmetric. The flow within the middle cerebral arteries is normal and symmetric. The anterior communicating artery is seen. No aneurysms are seen. Posterior circulation: Visualized portions of the vertebral arteries demonstrate normal caliber, and join to form a normal appearing basilar artery. Flow within the posterior cerebral arteries is normal and symmetric. No aneurysms are seen. NECK CT ANGIOGRAPHY: Carotid system: Mildly fusion of the ascending thoracic aorta measuring 4.2 centimeters. The great vessels demonstrate a conventional anatomy as they arise from the aortic arch. The origins of the common carotid arteries appear patent. The common carotid arteries demonstrate normal caliber and courses. The bifurcation regions are both widely patent. The internal carotid arteries demonstrate normal calibers and courses. Posterior circulation: The origins of the vertebral arteries both appear widely patent. The more superior extracranial portions of both vertebral arteries also demonstrate normal courses and calibers. They join to form a normal appearing basilar artery. Soft tissues: Visualized neck soft tissues demonstrate no suspicious abnormalities. Bones: No suspicious bony lesions. Visualized cervical spine appears normally aligned. Degenerative changes spine status post C5 through C7 ACDF IMPRESSION: No significant intracranial arterial abnormality is seen. No significant abnormality is seen within the arteries of the neck. Ectasia of the ascending thoracic aorta measuring 4.2 centimeters. Findings are concordant with preliminary interpretation provided by [facility]. Any quantitative measurements of stenosis were performed using NASCET criteria. Dictated by: Lucho Boyer M.D. on 01/09/2025 at 8:16 Approved by: Lucho Boyer M.D. on 01/09/2025 at 8:20
--- NOTE | 2025-01-09 05:05 | PC.NURSE ---
Pt to imaging via wheel chair with power plant technician
[2025-01-09] MEDS: LABETALOL 20 MG/4 ML SYRINGE IV (05:13)
== END 2025-01-09 06:23 | disposition home or self-care (01) ==
PROVIDERS: Emergency Provider Student in an Organized Health Care Education/Training Program; Family Provider Physician Assistant Medical; PCP Internal Medicine
DX: G43.909 Migraine, unspecified, not intractable, without status migrainosus (principal); I10 Essential (primary) hypertension; R11.0 Nausea
CPT/HCPCS: 36415; 70450; 70496; 70498; 80048; 85025; 96361; 96374; 96375; 99284; J0780; J1100; J1200; J2270; Q9967

== ENCOUNTER 2025-01-10 17:50 | Emergency (ER) | payer OTHER, SELFPAY ==
[2025-01-10] VITALS (10 sets, daily range): BP systolic 142–222; BP diastolic 79–116; PULSE 68–88; RESP 12–24; TEMP 37.1; O2SAT 95–99; BMI 26.6
--- NOTE | 2025-01-10 18:05 | EKG_ITS ---
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
--- NOTE | 2025-01-10 18:30 | ED_ITS ---
HPI - Abdominal Pain General Chief Complaint: Nausea/Vomiting/Diarrhea Stated Complaint: severe vomiting, upset stomach Time Seen by Provider: 01/10/25 18:04 Source: patient Mode of arrival: Ambulatory History of Present Illness HPI narrative: Patient is a 54-year-old female history of migraines presenting today with nausea vomiting and epigastric pain. she was here night of 01/09/2025 for migraine she had a noncontrast head CT and CT angio which did show questionable subdural along the posterior falx, however CT angio did not show any evidence. Patient says her headache went completely away. She now is having moving pretty severe epigastric pain vomiting feels like sometimes soething is stuck in her throat. Although she was able to swallow fluid and her saliva and it stays down. She denies absolutely any headache now. Not having any sort of chest pain. Blood pressure is noted to be quite high like it was last time. She does not have history of hypertension. No significant changes in bowel or bladder. She has not had any sort of surgeries. Patient reports that she actually started off with diarrhea then started having some nausea then developed a migraine had vomiting came to the ED in headache completely gone down no migraine no chest pain now just persistent vomiting all day. Reports that diarrhea has resolved she is now having formed soft stool Related Data Home Medications Medication Instructions Recorded Confirmed duloxetine 30 mg capsule,delayed See Rx Instructions .Route .COMPLEX 11/27/22 11/27/22 release frovatriptan 2.5 mg tablet See Rx Instructions .Route .COMPLEX 11/27/22 11/27/22 gabapentin 600 mg tablet 600 mg PO TID 11/27/22 11/27/22 methadone 10 mg tablet 10 mg PO BID 11/27/22 11/27/22 oxycodone 10 mg tablet 10 mg PO TID 11/27/22 11/27/22 Previous Rx's Medication Instructions Recorded ondansetron 4 mg disintegrating 4 mg PO Q8H PRN nausea and 01/10/25 tablet vomiting #10 tabs Allergies Allergy/AdvReac Type Severity Reaction Status Date / Time diclofenac Allergy Unknown Verified 01/10/25 18:16 WHIP CREAM Allergy Unknown HIVES , Uncoded 11/27/22 13:24 DIFFICULTY SWALLOWING Patient History Medical History Diarrhea (~05/2022) Back pain with history of spinal surgery Surgical History H/O cervical spine surgery (~2016) Hx of tonsillectomy (~2010) Status post tubal ligation (03/28/11) History of third molar tooth extraction Social History household members: family Smoking Status: Current every day smoker Smoking Status: Current every day smoker alcohol intake frequency: holidays/special occasions only Exam Initial Vital Signs Initial Vital Signs: Vital Signs Pulse Rate 81 01/10/25 17:55 Blood Pressure 222/116 H 01/10/25 17:55 Pulse Oximetry 96 01/10/25 17:55 GENERAL: Alert pleasant 54-year-old female HEENT: Head atraumatic,EOMI, pupils reactive, face symmetric, [moist] mucous membranes CARDIOVASCULAR: Regular rate and rhythm without murmurs, rubs or gallops. RESPIRATORY: Breath sounds equal bilaterally, no wheezes rales or rhonchi. ABDOMEN: Soft, extremely tender epigastric region positive Turk's sign no distention guarding or rebound EXTREMITIES: Normal range of motion, no clubbing or edema. Neurovascularly intact NEUROLOGICAL: Alert and oriented x4.Normal gait and speech. Cranial nerves II through XII grossly intact. SKIN: Warm, dry, no laceration, no petechiae, no rashes or lesions. Course Orders Ordered: ED Orders 01/10/25 18:05 EKG-12 Lead Stat 01/10/25 18:13 EKG-12 Lead Stat 01/10/25 18:30 US abdomen limited Stat 01/10/25 18:38 Complete Blood Count AUTO DIFF Stat Comprehensive Metabolic Panel Stat Lipase Stat PTT Partial Thromboplastin [place] Stat Prothrombin Time INR Stat Troponin & CK Cardiac Panel Stat 01/10/25 20:15 Urine Microscopic Stat Discontinued Medications Hydromorphone HCl (Hydromorphone 0.5 Mg Inj) 0.5 mg IV NOW ONE Stop: 01/10/25 18:31 Last Admin: 01/10/25 18:43 Dose: 0.5 mg Documented By: [facility] Sodium Chloride (Normal Saline 0.9%) 1,000 mls @ 1,000 mls/hr IV BOLUS ONE Stop: 01/10/25 19:12 Last Infusion: 01/10/25 20:17 Dose: Infused Documented By: Admin: 01/10/25 18:43 Dose: 1,000 mls/hr Documented By: ALISHA Ondansetron HCl (Ondansetron 4 Mg/2 Ml Inj) 4 mg IV NOW ONE Stop: 01/10/25 18:14 Last Admin: 01/10/25 18:42 Dose: 4 mg Documented By: ALISHA Ondansetron HCl (Ondansetron 4 Mg Odt Prepack) 1 bottle MISC NOW ONE Stop: 01/10/25 21:23 Pantoprazole Sodium (Pantoprazole 40 Mg Vial) 40 mg IV NOW ONE Stop: 01/10/25 18:31 Last Admin: 01/10/25 18:42 Dose: 40 mg Documented By: ALISHA Vital Signs Vital signs: Vital Signs - 8 hr 01/10/25 17:55 01/10/25 17:55 01/10/25 17:56 Temperature Pulse Rate 81 73 Respiratory Rate Blood Pressure 222/116 H Pulse Oximetry 96 96 Oxygen Delivery Method 01/10/25 17:56 01/10/25 17:58 01/10/25 18:00 Temperature 98.8 F Pulse Rate 88 78 Respiratory Rate 18 20 Blood Pressure 206/112 H 206/112 H Pulse Oximetry 97 97 Oxygen Delivery Method Room Air 01/10/25 18:00 01/10/25 18:30 01/10/25 18:30 Temperature Pulse Rate 75 Respiratory Rate 24 Blood Pressure 209/108 H 213/105 H Pulse Oximetry 96 Oxygen Delivery Method 01/10/25 19:00 01/10/25 19:15 01/10/25 19:15 Temperature Pulse Rate 74 75 Respiratory Rate 20 12 Blood Pressure 157/82 H Pulse Oximetry 99 98 Oxygen Delivery Method Room Air Blow By Room Air 01/10/25 19:30 01/10/25 19:30 01/10/25 20:00 Temperature Pulse Rate 68 69 Respiratory Rate 12 15 Blood Pressure 146/81 H Pulse Oximetry 98 95 Oxygen Delivery Method Room Air 01/10/25 20:00 01/10/25 21:27 Temperature Pulse Rate 74 Respiratory Rate 18 Blood Pressure 142/79 H 152/85 H Pulse Oximetry 96 Oxygen Delivery Method Room Air MDM - Abdominal Pain Lab Data 01/10/25 18:38 01/10/25 18:38 Labs: Lab Results 01/10/25 01/10/25 Range/Units 18:38 20:15 WBC 14.2 H (4.5-11.0) X10^3/uL RBC 5.07 (4.0-5.2) X10^6/uL Hgb 16.3 H (12.0-16.0) g/dL Hct 47.9 H (36-46) % MCV 94.5 (80-100) fL MCH 32.1 (26-34) PG MCHC 34.0 (30-36) % RDW 13.7 (11.6-14.8) % Plt Count 212 (150-400) X10^3/uL Neut % (Auto) 81.8 H (50-75) % Lymph % (Auto) 12.5 L (25-40) % [place] % (Auto) 5.4 (3-14) % Eos % (Auto) 0.1 L (2-4) % Baso % (Auto) 0.2 (0-2) % Neut # (Auto) 48473 H (4593-2941) /uL Lymph # (Auto) 1800 (0733-1304) /uL [place] # (Auto) 800 (0-900) /uL Eos # (Auto) 0 (0-450) /uL Baso # (Auto) 0 (0-100) /uL PT 12.4 (9.4-12.5) SECONDS INR 1.1 (0.9-1.3) APTT 27 (25.1-36.5) SECONDS Sodium 135 L (137-145) mmol/L Potassium 3.6 (3.4-5.1) mmol/L Chloride 102 (98-107) mmol/L Carbon Dioxide 23 (22-32) mmol/L BUN 14 (7-17) mg/dL Creatinine 0.68 (0.52-1.04) mg/dL Estimated GFR > 60 (>60) mL/min BUN/Creatinine Ratio 20.6 (6-22) Glucose 110 H (70-100) mg/dL Calcium 9.2 (8.4-10.2) mg/dL Total Bilirubin 1.2 (0.2-1.3) mg/dL AST 38 H (14-36) IU/L ALT 24 (<35) IU/L Alkaline Phosphatase 71 (38-126) U/L Total Creatine Kinase 124 (30-135) U/L Troponin I 0.023 (0.01-0.034) ng/mL Total Protein 7.0 (6.3-8.2) g/dL Albumin 4.3 (3.5-5.0) g/dL Globulin 2.7 (1.7-4.1) g/dL Albumin/Globulin Ratio 1.6 (1.0-2.8) Lipase 85 (23-300) U/L Urine RBC 0-1/hpf (0-5/HPF) Urine WBC 0-1/hpf (0-5/HPF) Ur Squamous Epith Cells 1-5 /hpf (0-5/HPF) Urine Bacteria Moderate (10-30) H (None) Ur Culture Indicated? Cult not indicated Vol Urine Centrifuged 10ml (spun) Point of care testing: Urine Dip Bedside Urine Glucose Negative Bedside Urine Bilirubin - Negative Bedside Urine Ketone ++ 40 Urine Specific [place] 1.015 Bedside Urine Occult Blood + Bedside Urine pH 6 Bedside Urine Protein +/- 15 Bedside Urine Urobilinogen - Negative Bedside Urine Nitrite - Negative Bedside Urine Leukocytes - Negative Esterase Imaging Data US - abdomen: Radiologist's Impression: PROCEDURE: US ABDOMEN LIMITED INDICATIONS: ruq paind TECHNIQUE: Real-time scanning was performed of the abdominal and retroperitoneal organs, with image documentation. COMPARISON: None. FINDINGS: Liver: Liver measures 18.4 cm with steatosis. Gallbladder: No gallstones. No wall thickening. No pericholecystic edema. Negative sonographic Turk's sign. Biliary ducts: Intrahepatic bile ducts are non-dilated. Extrahepatic bile duct caliber measures 8 mm. Normal is 6-7 mm or less in diameter, or 10 mm or less post-cholecystectomy. Pancreas: Visualized portions of the pancreas are sonographically normal. Miscellaneous: No free abdominal fluid. IMPRESSION: Prominent liver with steatosis. Gallbladder is unremarkable. Dictated by: Jaci Cortez M.D. on 01/10/2025 at 19:54 ECG Data Attestation: I personally reviewed and interpreted this ECG as follows: Prior ECG tracings: available for review Interpretation: normal sinus rhythm rate 74 MT interval 130 QRS [address] depression in V5 and V4 new from previous EKGs in 2011no ST elevations no T-wave inversions MDM Narrative Medical decision making narrative: GARCIA CC: Nausea vomiting Complicating co-morbidities: History of migraine Data collected from: Patient Medical records reviewed: Recent ED visit imaging and report reviewed Differential considered: Cholelithiasis, cholecystitis esophageal spasm acute coronary syndrome hypertensive emergency, pancreatitis Exam documented above, pertinent findings include: Extremely tender epigastric region with positive right upper quadrant pain, cranial nerves intact Lab Test results independently reviewed as above. Pertinent findings: CBC WBC is 14.2 hemoglobin 16.6 hematocrit 47.9 platelets 212 Sodium 135 potassium 3.6 chloride 102 carbon dioxide 23 BUN 14 creatinine 0.6 Bilirubin 1.2 AST 38 ALT 34 alk-phos 71 lipase 85 Independently reviewed EKG as above: Sinus rhythm no ischemia mild ST depression no ST-elevation Imaging studies independently reviewed: Ultrasound prominent liver with steatosis gallbladder is unremarkable Treatments: IV fluids Protonix Zofran Dilaudid Re-evaluations: Patient's pain completely resolved no nausea or vomiting tolerating p.o. fluids Discussion: Alert 54-year-old female history of migraines presenting to day with vomiting. Actually sounds like she was some diarrhea and then vomiting symptoms are most consistent with a gastroenteritis. She was extremely tender epigastric right upper quadrant region. However bilirubin liver enzymes within normal limits ultrasound does not show any evidence of cholecystitis or cholelithiasis lithiasis. She is tolerating fluids pain completely controlled. Blood pressure improved no headache. There was questionable subdural on noncontrast head CT, CT angio was read as negative multiple phone calls were made in regards to this ultimately decided that there is no intracranial hemorrhage and patient was discharged. Not having any headache or weakness today. I think patient has a gastroenteritis which induced a migraine and now still having some vomiting. Overall appears well low concern for an intracranial hemorrhage Discharge Plan Departure Patient Disposition: Home Clinical Impression: Gastroenteritis Instructions: DI for Viral Gastroenteritis -- Adult Activity Restrictions/Additional Instructions: *You have been diagnosed with gastroenteritis *What to do: Increase fluids as tolerated recommend Pedialyte Gatorade *Continue to take medications as directed Zofran 4 mg every 8 hours if needed for nausea or vomiting *Follow up with your primary care provider in 2-3 days or call [phone] *Return to ER if you should have increasing vomiting abdominal pain headache chest pain [or] any new, worsening or concerning symptoms Prescriptions: New ondansetron 4 mg tablet,disintegrating 4 mg PO Q8H PRN (Reason: nausea and vomiting) Qty: 10 0RF No Action duloxetine 30 mg capsule,delayed release(DR/EC) See Rx Instructions .ROUTE .COMPLEX Rx Instructions: depression frovatriptan 2.5 mg tablet See Rx Instructions .ROUTE .COMPLEX Patient Comments: TAKE 1 TABLET BY MOUTH UP TO ONCE DAILY NEEDED FOR SEVERE MIGRAINE Rx Instructions: migraines gabapentin 600 mg tablet 600 mg PO TID oxycodone 10 mg tablet 10 mg PO TID Patient Comments: TAKE 1 TABLET BY MOUTH THREE TIMES DAILY NEEDED FOR BREAKTHROUGH PAIN methadone 10 mg tablet 10 mg PO BID Referrals: Connor Justin MD [Primary Care Provider] - Stand Alone Forms: Patient Portal/API/Survey
[2025-01-10] MEDS: PANTOPRAZOLE 40 MG VIAL IV (18:42)
[2025-01-10] MEDS: ONDANSETRON 4 MG/2 ML INJ IV (18:42)
[2025-01-10] MEDS: HYDROMORPHONE 0.5 MG INJ IV (18:43)
[2025-01-10] MEDS: SODIUM CHLORIDE 0.9% 1,000 ML 1000 ML IV (18:43)
[2025-01-10 18:46] LABS: Add Manual Diff / Slide Review NO; Basophils Absolute Auto 0 /uL (0-100); Basophils Percent Auto 0.2 % (0-2); Eosinophils Absolute Auto 0 /uL (0-450); Eosinophils Percent Auto 0.1 % (2-4); Hematocrit 47.9 % (36-46); Hemoglobin 16.3 g/dL (12.0-16.0); Lymphocytes Absolute Auto 1800 /uL (1100-4500); Lymphocytes Percent Auto 12.5 % (25-40); Mean Corpuscular Hemoglobin 32.1 PG (26-34); Mean Corpuscular Volume 94.5 fL (80-100); Monocytes Absolute Auto 800 /uL (0-900); Monocytes Percent Auto 5.4 % (3-14); Neutrophils Absolute Auto 11600 /uL (1500-7000); Neutrophils Percent Auto 81.8 % (50-75); Platelet Count 212 X10^3/uL (150-400); Red Blood Cell Count 5.07 X10^6/uL (4.0-5.2); Red Cell Distribution Width 13.7 % (11.6-14.8); White Blood Cell Count 14.2 X10^3/uL (4.5-11.0)
[2025-01-10 18:51] LABS: INR 1.1 (0.9-1.3); Prothrombin Time 12.4 SECONDS (9.4-12.5)
[2025-01-10 18:54] LABS: PTT Partial Thromboplastin Tim 27 SECONDS (25.1-36.5)
[2025-01-10 18:56] LABS: Alanine Aminotransferase 24 IU/L (<35); Albumin 4.3 g/dL (3.5-5.0); Albumin Globulin Ratio 1.6 (1.0-2.8); Alkaline Phosphatase 71 U/L (38-126); Aspartate Aminotransferase 38 IU/L (14-36); BUN Creatinine Ratio 20.6 (6-22); Bilirubin Total 1.2 mg/dL (0.2-1.3); Blood Urea Nitrogen 14 mg/dL (7-17); Calcium 9.2 mg/dL (8.4-10.2); Carbon Dioxide 23 mmol/L (22-32); Chloride 102 mmol/L (98-107); Creatine Kinase 124 U/L (30-135); Estimated Glomerular Filt Rate > 60 mL/min (>60); Globulin 2.7 g/dL (1.7-4.1); Glucose 110 mg/dL (70-100); HEMOLYSIS 21 (0-50); Lipase 85 U/L (23-300); Potassium 3.6 mmol/L (3.4-5.1); Sodium 135 mmol/L (137-145)
[2025-01-10 19:08] LABS: Troponin I 0.023 ng/mL (0.01-0.034)
--- NOTE | 2025-01-10 20:08 | PC.NURSE ---
Pt ambulatory to restroom without difficulty or assistance
--- NOTE | 2025-01-10 20:34 | PC.NURSE ---
Taking po fluids without difficulty
[2025-01-10 20:35] LABS: Urine Volume 10mL (spun)
[2025-01-10 20:36] LABS: Bacteria Urine Moderate (10-30); Culture Indicated Urine Cult Not Indicated; RBC Urine 0-1/HPF (0-5/HPF); Squamous Epithelial Cell Urine 1-5 /HPF (0-5/HPF); WBC Urine 0-1/HPF (0-5/HPF)
== END 2025-01-10 21:31 | disposition home or self-care (01) ==
PROVIDERS: Emergency Provider Emergency Medicine; Family Provider Physician Assistant Medical; PCP Internal Medicine
DX: K52.9 Noninfective gastroenteritis and colitis, unspecified (principal); R11.2 Nausea with vomiting, unspecified
CPT/HCPCS: 36415; 76705; 80053; 81003; 81015; 82550; 83690; 84484; 85025; 85610; 85730; 93005; 96361; 96374; 96375; 99284; J1171; J2405; J2470